=== PATIENT | male | born 1980 | race Two or more races ===

== ENCOUNTER 2016-10-19 08:06 | Emergency (ER) | payer OTHER ==
--- NOTE | 2016-10-19 08:32 | ER Document Report ---
ED General - General Chief Complaint: Toe Injury Stated Complaint: LEFT FOOT PAIN Time Seen by Provider: 10/19/16 08:20 Notes: 36-year-old male with no past medical history presents with redness and swelling of the left foot associated with a draining wound on his toe. This was going on for several days and he was seen yesterday by [facility] where he was given an antibiotic injection and prescribed Bactrim. He thinks that the redness is about the same or better than it was before including the swelling, but he noticed another wound on his heel which she was concerned about. He denies fevers and chills and is not a known diabetic. His last tetanus vaccination was 2 years ago. TRAVEL OUTSIDE OF THE [place] IN LAST 30 DAYS: No - Related Data Allergies/Adverse Reactions: No Known Allergies Allergy (Unverified 10/19/16 08:09) Past Medical History - Social History Smoking Status: Never Smoker Family History: DM, Hypertension Patient has suicidal ideation: No Patient has homicidal ideation: No - Medical History Medical History: Negative Renal/ Medical History: Denies: Hx Peritoneal Dialysis Review of Systems - Review of Systems Notes: REVIEW OF SYSTEMS GEN: Denies fever, chills, weight loss ENT: Denies sore throat, nasal discharge, ear pain EYES: Denies blurry vision, eye pain, discharge CV: Denies chest pain, palpitations, edema RESP: Denies cough, shortness of breath, wheezing GI: Denies abdominal pain, nausea, vomiting, diarrhea MSK: Denies joint pain/swelling, edema, SKIN: Denies rash, skin lesions LYMPH: Denies swollen glands/lymph nodes NEURO: Denies headache, focal weakness or numbness, dizziness PSYCH: Denies depression, suicidal or homicidal ideation PHYSICAL EXAMINATION General: No acute distress, well-nourished Head: Atraumatic, normocephalic ENT: Mouth normal, oropharynx moist, no exudates or tonsillar enlargement Eyes: Conjunctiva normal, pupils equal, lids normal Neck: No JVD, supple, no guarding CVS: Normal rate, regular rhythm, no murmurs Resp: No resp distress, equal and normal breath sounds bilaterally GI: Nondistended, soft, no tenderness to palpation, no rebound or guarding Ext: Mild skin edema and erythema on the dorsum of the left foot extending to the proximal ankle. No ankle effusion, full range of motion. Small draining abscess to the base of the fourth toe with no further purulence. Scab on the Achilles tendon area and left foot without drainage or ulceration. Back: No CVA or midline TTP Skin: No rash, warm Lymphatic: No lymphadeopathy noted Neuro: Awake, alert. Face symmetric. GCS 15. Physical Exam - Vital signs Vitals: Temp Pulse Resp BP Pulse Ox 98.7 F 97 16 148/98 H 97 10/19/16 08:09 10/19/16 08:09 10/19/16 08:09 10/19/16 08:09 10/19/16 08:09 Course - Re-evaluation Re-evalutation: 36-year-old male with foot cellulitis and small draining abscess. Given the acute presentation is not likely to be osteomyelitis, and it seems that it is overall improving with his oral antibiotic regimen. I will screen for diabetes given his foot infection, with a blood sugar. I will add Keflex. I outlined his wound and he will follow-up as an outpatient. 10/19/16 08:27 - Vital Signs Vital signs: Temp Pulse Resp BP Pulse Ox 98.7 F 97 16 148/98 H 97 10/19/16 08:09 10/19/16 08:09 10/19/16 08:09 10/19/16 08:09 10/19/16 08:09 Discharge - Discharge Clinical Impression: Cellulitis of left lower extremity Condition: Good Disposition: HOME, SELF-CARE Instructions: Cellulitis ([facility]) Additional Instructions: Please keep an eye on the redness and elevate your leg. You can also soak it in Epsom salts as limited health recommended. Please follow-up with [facility] in 3-5 days as long as this is improving, or return to the emergency department at once if it is not improving or getting worse. Prescriptions: Cephalexin Monohydrate [Keflex 500 mg Capsule] 500 mg PO Q6H 5 Days capsule Forms: Elevated Blood Pressure
[2016-10-19 09:14] VITALS: BP 127/86
== END 2016-10-19 08:40 | disposition home or self-care (01) ==
LOC: ER 08:06
DX: L03.116 Cellulitis of left lower limb (principal); L02.612 Cutaneous abscess of left foot
CPT/HCPCS: 82962; 99283